=== PATIENT | male | born 1990 | race Caucasian/White ===

== ENCOUNTER 2021-12-14 15:33 | Emergency (ER) | payer SELFPAY ==
[~2021-12-14 15:33] MED LIST: Lactated Ringer's 1,000 ML BAG ONE
[2021-12-14] MEDS ORDERED: Ibuprofen 800 MG TAB ONE (19:01)
[2021-12-14 19:46] LABS: Band 7 % (5-11); Hemoglobin 18.3 g/dL (14.0-18.0); Lymphocytes 19 % (21-51); MDiff Complete? YES; Mean Corpuscular HGB CONC 32.5 g/dL (32.0-36.0); Mean Corpuscular Hemoglobin 29.1 pg (27.0-31.0); Mean Corpuscular Volume 89.4 fl (78.0-98.0); Mean Platelet Volume 9.5 fL (7.4-10.4); Monocytes 8 % (0-10); Neutrophil 65 % (42-75); Platelet Count 207 10x3/uL (130-400); Platelet Morphology Comment Appears Adequate; RBC Distribution Width 11.8 % (11.5-14.5); RBC Morphology Normal; Reactive Lymphocytes 1 % (0-10); Red Blood Cell (RBC) Count 6.31 mill/uL (4.70-6.10); White Blood Cell (WBC) Count 3.1 10x3/uL (4.8-10.8)
[2021-12-14 19:47] LABS: ALT (SGPT) 109 U/L (8-55); AST (SGOT) 60 U/L (5-34); Alkaline Phosphatase 66 U/L (40-110); Anion Gap 12 mmol/L (10-20); BUN (Urea Nitrogen) 10 mg/dL (8.9-20.6); Bilirubin, Total 0.2 mg/dL (0.2-1.2); Calc. Creatinine Clearance 0 mL/min (70-130); Calcium 8.8 mg/dL (7.8-10.44); Carbon Dioxide 27 mmol/L (22-29); Chloride 101 mmol/L (98-107); Estimated GFR 94; Globulin 3.1 g/dL (2.4-3.5); Glucose 88 mg/dL (70-105); Potassium 4.2 mmol/L (3.5-5.1); Protein, Total 7.1 g/dL (6.0-8.3); Sodium 136 mmol/L (136-145)
== END 2021-12-14 21:05 | disposition home or self-care (01) ==
LOC: MADERS 15:33
DX: J10.1 Influenza due to other identified influenza virus with other respiratory manifestations (principal); R74.01 Elevation of levels of liver transaminase levels; F17.210 Nicotine dependence, cigarettes, uncomplicated; Z20.822 Contact with and (suspected) exposure to COVID-19
CPT/HCPCS: 80053; 83605; 84484; 85025; 87040; 87804; 93005; 94760; 96360; J7120; U0003; U0005